=== PATIENT | male | born 1935 | race Caucasian/White ===

== ENCOUNTER 2024-12-04 19:48 | Emergency (ER) | payer MEDICARE, SELFPAY ==
[2024-12-04 19:50] VITALS: BP 105/70
[2024-12-04 20:35] VITALS: BMI 26.6
--- NOTE | 2024-12-04 22:13 | ED.GENMED ---
History of Present Illness
General
Chief Complaint: Fall
Source: patient and family
Exam Limitations: none
Time Seen by Provider: 12/04/24 20:11
Nursing documentation reviewed up to this point in time: agreed with
History of Present Illness
History of Present Illness:
Patient to ED from [facility]. According to son, patient had a trip and fall, witnessesd by staff. Hit right side of head on ground. No LOC Incident occurred jsut [employer]. Patient offers no complaints.
Past History
Past History
ED Past Medical History: Hypercholesterolemia and Hypothyroidism
Review of Systems
Review of Systems
Allergies reviewed?: Yes
All Other Systems: ROS reviewed and negative except as documented in HPI and ROS
Constitutional: Reports no symptoms
EENT: Reports no symptoms
Respiratory: Reports no symptoms
Cardiac: Reports no symptoms
ABD/GI: Reports no symptoms
Musculoskeletal: Reports no symptoms
Skin: Reports no symptoms
Neurological: Reports no symptoms
Psychiatric: Reports no symptoms
Phy Exam
General Physical Exam
General Presentation: well appearing and no apparent distress
General age: appears stated age
General Skin: warm and dry
General Habitus: normal
Cardiovascular Exam
Cardiovascular Exam: regular rate/rhythm
Pulmonary Exam
Pulmonary Exam: no respiratory distress and chest non tender
Gastrointestinal Exam
Gastrointestinal Exam: non tender, soft and no organomegaly
Neurological Exam
Neurological Exam: alert, no motor deficits, no sensory deficits and speech normal
Musculoskeletal Exam
Musculoskeletal Exam: full ROM and neuro vasc intact
Skin Exam
Skin Exam: normal color, warm/dry, no rash and other (No scalp wounds, no hematoma.)
Psychiatric Exam
Psychiatric Exam: normal mood/affect
Course
Orders/Labs/Results
Orders:
Orders
12/04/24 19:58
CT Head W/o Iv Contrast Urgent
Comment:
Reason For Exam: fall with head strike
Cervical Spine wo Contrast CT [CT Cervical Spine W/o Iv Contr] Urgent
Comment:
Reason For Exam: fall with head strike
Vital Signs
Initial and Last Documented VS:
Initial Vital Signs
Temp Pulse Resp BP Pulse Ox
98.1 F 71 16 105/70 98
12/04/24 19:50 12/04/24 19:50 12/04/24 19:50 12/04/24 19:50 12/04/24 19:50
Last Documented Vital Signs
Temp Pulse Resp BP Pulse Ox
98.1 F 71 16 105/70 98
12/04/24 19:50 12/04/24 19:50 12/04/24 19:50 12/04/24 19:50 12/04/24 19:50
*Radiology
Radiology exam reviewed: radiology read reviewed
*Pulse Oximetry
Patient hypoxic: no
*Critical Care Note
Total Time (30-74mins, 75-104mins- exclusive of procedures): Not Applicable
ED Attending Note
-
Portions of this chart may have been created with voice recognition software.� Occasional wrong word or��sound alike� substitutions may have occurred due to the inherent limitations of voice recognition software.
Discharge Plan
Departure
Patient Disposition: Home (Routine Discharge)
Date of Disposition: 12/04/24
Time of Disposition: 22:12
Patient with high blood pressure during this ER visit?: No
Condition: Good
Covid-19: Not Applicable
Discharge Problem:
Head injury
Instructions: Head Injury in Adults (DC), Preventing falls in adults
Prescriptions:
No Action
donepezil 5 mg Tablet
5 mg PO HS
melatonin 3 mg Tablet
3 mg PO HS
aspirin 81 mg Tablet,Delayed Release (Dr/Ec)
81 mg PO DAILY
triamcinolone acetonide 0.1 % Cream
1 applic TOPICAL DAILY PRN (Reason: psoriasis)
triamcinolone acetonide 0.1 % Cream
1 applic TOPICAL DAILY
levothyroxine 100 mcg Tablet
100 mcg PO DAILY
hydrocortisone 1 % Cream
1 applic TOPICAL Q4 PRN (Reason: itching)
rosuvastatin 40 mg Tablet
40 mg PO HS
memantine 10 mg Tablet
10 mg PO BID
Rx Instructions:
07:00 and 20:00
cholecalciferol (vitamin D3) [Vitamin D3] 25 mcg (1,000 unit) Tablet
25 mcg PO HS
Referrals:
UNKNOWN - PT DOES,NOT KNOW [Family Provider] -
Activity Restrictions/Additional Instructions:
Follow up with your healthcare provider this week.
Interventions
Interventions:
*Risk Screen - Suicide Last Done: 12/04/24 20:34
*General Assessment Last Done: 12/04/24 19:50
*Neglect/Abuse Screening Last Done: 12/04/24 20:34
ED- Fall Risk Assessment Last Done: 12/04/24 20:34
*ED COVID-19 Vaccine History Last Done: 12/04/24 19:50
ED-Musculoskeletal Assessment Last Done: 12/04/24 20:34
ED- Neurological Assessment Last Done: 12/04/24 20:34
ED-Skin Assessment Last Done: 12/04/24 20:34
Discharge Date and Time
Print Language: YAKUT
== END 2024-12-04 22:27 | disposition home or self-care (01) ==
LOC: EMR 19:48
PROVIDERS: EMERGENCY PHYSICIAN Emergency Medicine
DX: S09.90XA Unspecified injury of head, initial encounter (principal); W01.0XXA Fall on same level from slipping, tripping and stumbling without subsequent striking against object, initial encounter; E03.9 Hypothyroidism, unspecified; E78.00 Pure hypercholesterolemia, unspecified
CPT/HCPCS: 99284; 70450; 72125

== ENCOUNTER → 2025-03-31 15:44 | Outpatient (REF) | payer MEDICARE, SELFPAY ==
[2025-04-01 11:40] LABS: Hematocrit 36.1 % (39.0-52.0); Hemoglobin 12.4 g/dL (13.0-18.0); Mean Corp Hgb Conc. 34.3 g/dL (33.0-37.0); Mean Corpuscular Hgb 33.5 pg (27.0-31.0); Mean Corpuscular Volume 97.6 fL (80.0-94.0); Platelet Count 179 10^3/uL (130-400); Red Cell Dist. Width 12.7 % (11.5-14.5); White Blood Cell Count 5.4 10^3/uL (4.8-10.8)
[2025-04-01 11:41] LABS: % Eosinophils 8.2 % (0-6); % Lymphocytes 37.9 % (20.5-51.1); % Monocytes 19.6 % (1.7-9.3); Mean Platelet Volume 10.8 fL (7.4-10.4)
[2025-04-01 11:42] LABS: % Basophils 1.1 % (0-2); % Immature Granulocytes 0.2 % (0-0.5); Absolute Neutrophils 1.8 10^3/uL (1.4-6.5)
[2025-04-01 11:43] LABS: Absolute Basophils 0.1 10^3/uL (0-0.2); Absolute Monocytes 1.1 10^3/uL (0.1-0.6); Nucleated Red Blood Cells % 0 % (-)
[2025-04-01 11:44] LABS: Absolute Eosinophils 0.4 10^3/uL (0-0.7); Blood Urea Nitrogen 16 mg/dl (9-20); Glucose 94 mg/dl (70-99); eGFR > 60.00
[2025-04-01 11:46] LABS: Carbon Dioxide 29 mmol/L (22-30); Chloride 110 mmol/L (98-107); Potassium 4.1 mmol/L (3.5-5.1); Sodium 142 mmol/L (135-145)
[2025-04-01 11:47] LABS: ALT (SGPT) 29 U/L (0-50); AST (SGOT) 25 U/L (17-59); Albumin 3.5 g/dl (3.5-5.0); Alkaline Phosphatase 39 U/L (38-126); Calcium 8.9 mg/dl (8.4-10.2); Total Bilirubin 0.8 mg/dl (0.2-1.3); Total Protein 6.5 g/dl (6.3-8.2)
[2025-04-01 11:48] LABS: HDL Cholesterol 49 mg/dl; LDL Cholesterol, Calculated 38 mg/dl; Total Cholesterol 107 mg/dl (50-199); Triglyceride 101 mg/dl (10-149); Very Low Density Lipoprotein 20 mg/dl (0-30)
[2025-04-01 11:49] LABS: Free T4 1.26 ng/dl (0.78-2.19); TSH 2.94 uIU/ml (0.47-4.68)
[2025-04-01 11:50] LABS: PSA, Total - Screen 0.47 ng/ml (0.0-4.0)
== END ==
LOC: OLABMERCHI 15:44
PROVIDERS: ATTENDING PHYSICIAN Hospitalist
DX: E78.5 Hyperlipidemia, unspecified (principal); E03.9 Hypothyroidism, unspecified; E55.9 Vitamin D deficiency, unspecified; Z12.5 Encounter for screening for malignant neoplasm of prostate; R35.0 Frequency of micturition
CPT/HCPCS: 36415; 80053; 80061; 82306; 84439; 84443; 85025; G0103

== ENCOUNTER → 2025-04-07 12:37 | Outpatient (REF) | payer MEDICARE, SELFPAY ==
[2025-04-07 13:37] LABS: Hematocrit 40.4 % (39.0-52.0); Hemoglobin 13.7 g/dL (13.0-18.0); Mean Corp Hgb Conc. 33.9 g/dL (33.0-37.0); Mean Corpuscular Hgb 33.3 pg (27.0-31.0); Mean Corpuscular Volume 98.3 fL (80.0-94.0); Mean Platelet Volume 10.8 fL (7.4-10.4); Platelet Count 205 10^3/uL (130-400); Red Blood Cell Count 4.11 10^6/uL (4.70-6.10); Red Cell Dist. Width 12.8 % (11.5-14.5); White Blood Cell Count 5.6 10^3/uL (4.8-10.8)
[2025-04-07 14:42] LABS: ALT (SGPT) 28 U/L (0-50); AST (SGOT) 25 U/L (17-59); Albumin 4.1 g/dl (3.5-5.0); Alkaline Phosphatase 49 U/L (38-126); Blood Urea Nitrogen 18 mg/dl (9-20); Calcium 9.1 mg/dl (8.4-10.2); Carbon Dioxide 27 mmol/L (22-30); Chloride 108 mmol/L (98-107); Glucose 140 mg/dl (70-99); HDL Cholesterol 52 mg/dl; LDL Cholesterol, Calculated 41 mg/dl; Potassium 4.3 mmol/L (3.5-5.1); Sodium 143 mmol/L (135-145); Total Bilirubin 0.9 mg/dl (0.2-1.3); Total Cholesterol 112 mg/dl (50-199); Total Protein 7.3 g/dl (6.3-8.2); Triglyceride 98 mg/dl (10-149); Very Low Density Lipoprotein 19 mg/dl (0-30); eGFR > 60.00
[2025-04-07 15:10] LABS: Free T4 1.38 ng/dl (0.78-2.19); Vitamin D, 25-OH*** 48.6 ng/mL (30-80)
[2025-04-07 15:23] LABS: TSH 2.91 uIU/ml (0.47-4.68)
== END ==
LOC: OLABMERCHI 12:37
PROVIDERS: ATTENDING PHYSICIAN Hospitalist
DX: E78.5 Hyperlipidemia, unspecified (principal); E03.9 Hypothyroidism, unspecified; G30.9 Alzheimer's disease, unspecified; E55.9 Vitamin D deficiency, unspecified; R35.0 Frequency of micturition
CPT/HCPCS: 36415; 80053; 80061; 82306; 84439; 84443; 85027

== ENCOUNTER 2025-07-16 15:38 | Emergency (ER) | payer MEDICARE, SELFPAY ==
[2025-07-16 15:45] VITALS: BP 134/70
[2025-07-16 16:21] LABS: Hematocrit 36.5 % (39.0-52.0); Hemoglobin 12.4 g/dL (13.0-18.0); Mean Corp Hgb Conc. 34.0 g/dL (33.0-37.0); Mean Corpuscular Volume 97.1 fL (80.0-94.0); Nucleated Red Blood Cells % 0 % (-); Platelet Count 191 10^3/uL (130-400); Red Cell Dist. Width 12.7 % (11.5-14.5)
[2025-07-16 16:51] LABS: ALT (SGPT) 24 U/L (0-50); AST (SGOT) 23 U/L (17-59); Albumin 4.1 g/dl (3.5-5.0); Alkaline Phosphatase 64 U/L (38-126); Blood Urea Nitrogen 24 mg/dl (9-20); Calcium 9.1 mg/dl (8.4-10.2); Carbon Dioxide 27 mmol/L (22-30); Chloride 107 mmol/L (98-107); Glucose 109 mg/dl (70-99); Potassium 4.0 mmol/L (3.5-5.1); Sodium 139 mmol/L (135-145); Total Protein 7.4 g/dl (6.3-8.2); eGFR > 60.00
[2025-07-16 17:42] VITALS: BMI 26.4
[2025-07-16 17:45] VITALS: BP 134/68
--- NOTE | 2025-07-16 18:58 | ED.GENMED ---
History of Present Illness
General
Chief Complaint: Head Injury
Time Seen by Provider: 07/16/25 16:45
History of Present Illness
History of Present Illness:
89-year-old male presents to the emergency department for evaluation after an unwitnessed fall. He is a resident at assisted living facility, son states that they have cameras throughout his home particularly in his room and there was no video
evidence of the fall. Arrives with a large hematoma to the left parietal and occipital scalp. Patient cannot provide any history secondary to dementia. He denies complaints. Does not take blood thinners but does take baby aspirin
Past History
Past History
ED Past Medical History: Hypercholesterolemia and Hypothyroidism
Review of Systems
Review of Systems
Allergies reviewed?: Yes
All Other Systems: ROS reviewed and negative except as documented in HPI and ROS
Phy Exam
Physical Exam
Physical Exam:
GEN: Well appearing, NAD, WDWN
HEENT: Large cephalohematoma to the left occipital parietal scalp with no open wounds oral mucosa moist, no scleral icterus, no nasal congestion
Cardiac: Regular rate
Lung: No respiratory distress, no tachypnea
MSK: No gross deformity or injuries, no midline CTL spine tenderness
Skin: Good color, no pallor or jaundice, no rashes
Neuro: Alert and oriented to baseline, pleasantly confused; CN II-XII grossly intact. BUE strength 5/5 in all montero, sensation intact and symmetric. BLE strength 5/5 in all montero, sensation intact and symmetric
Psych: Calm, cooperative
Course
Orders/Labs/Results
Orders:
Orders
07/16/25 15:[address] [CT Head W/o Iv Contrast] Urgent
Comment:
Reason For Exam: fall
07/16/25 15:50
EKG [Electrocardiogram (*1)] Urgent
Reason for Study: Fatigue / Weakness
07/16/25 15:51
EKG- Treatment ONCE
07/16/25 16:07
CMP [Comprehensive Metabolic Panel] Urgent
Complete Blood Count/With Diff Urgent
Abnormal Lab Results
07/16/25
16:07
RBC 3.76 L 10^6/uL
(4.70-6.10)
Hgb 12.4 L g/dL
(13.0-18.0)
Hct 36.5 L %
(39.0-52.0)
MCV 97.1 H fL
(80.0-94.0)
MCH 33.0 H pg
(27.0-31.0)
Absolute Monos (auto) 0.9 H 10^3/uL
(0.1-0.6)
Monocytes % 15.1 H %
(1.7-9.3)
BUN 24 H mg/dl
(9-20)
Glucose 109 H mg/dl
(70-99)
07/16/25 16:07
07/16/25 16:07
Vital Signs
Initial and Last Documented VS:
Initial Vital Signs
Temp Pulse Resp BP Pulse Ox
97.5 F 66 18 134/70 96
07/16/25 15:45 07/16/25 15:45 07/16/25 15:45 07/16/25 15:45 07/16/25 15:45
Last Documented Vital Signs
Temp Pulse Resp BP Pulse Ox
97.5 F 62 16 154/84 96
07/16/25 15:45 07/16/25 19:42 07/16/25 19:42 07/16/25 19:42 07/16/25 19:42
MDM/Problems Addressed
MDM/Problems Addressed:
CT imaging reveals a small subarachnoid hemorrhage and a contrecoup location. Will be transferred to [facility] for observation and management, remained neurologically intact in the emergency department, discussed potential role of DDAVP with
trauma team at [facility] who felt this was unnecessary given the small size of the bleed
*Pulse Oximetry
SaO2: 98
Oxygen Mode of Delivery: Room air
Patient hypoxic: no
*Critical Care Note
Total Time (30-74mins, 75-104mins- exclusive of procedures): Not Applicable
ED Attending Note
-
Portions of this chart may have been created with voice recognition software.� Occasional wrong word or��sound alike� substitutions may have occurred due to the inherent limitations of voice recognition software.
Discharge Plan
Departure
Patient Disposition: [facility]
Date of Disposition: 07/16/25
Time of Disposition: 18:59
Discharge Problem:
Traumatic subarachnoid hemorrhage
Prescriptions:
No Action
donepezil 5 mg Tablet
5 mg PO HS
melatonin 3 mg Tablet
3 mg PO HS
aspirin 81 mg Tablet,Delayed Release (Dr/Ec)
81 mg PO DAILY
triamcinolone acetonide 0.1 % Cream
1 applic TOPICAL DAILY PRN (Reason: psoriasis)
triamcinolone acetonide 0.1 % Cream
1 applic TOPICAL DAILY
levothyroxine 100 mcg Tablet
100 mcg PO DAILY
hydrocortisone 1 % Cream
1 applic TOPICAL Q4 PRN (Reason: itching)
rosuvastatin 40 mg Tablet
40 mg PO HS
memantine 10 mg Tablet
10 mg PO BID
Rx Instructions:
07:00 and 20:00
cholecalciferol (vitamin D3) [Vitamin D3] 25 mcg (1,000 unit) Tablet
25 mcg PO HS
Referrals:
KEVIN STRAUSS CRNP [Family Provider, Family Practice]
Hospital Transfer
Other hospital: [facility]
I certify that the patient requires transfer: Yes
Discussed case with accepting physician: Rosa
Reason for transfer: higher level of care
Interventions
Interventions:
*Risk Screen - Suicide Last Done: 07/16/25 15:45
*General Assessment Last Done: 07/16/25 15:45
*Neglect/Abuse Screening Last Done: 07/16/25 15:45
*ED- Fall Risk Assessment Last Done: 07/16/25 15:45
*ED COVID-19 Vaccine History Last Done: 07/16/25 15:45
*Nursing Disposition Last Done: 07/16/25 19:49
ED- Neurological Assessment Last Done: 07/16/25 17:49
ED-Skin Assessment Last Done: 07/16/25 17:49
Discharge Date and Time
Discharge Date/Time: 07/16/25 19:52
Print Language: JORDANIAN
[2025-07-16 19:42] VITALS: BP 154/84
== END 2025-07-16 19:52 | disposition short-term general hospital (02) ==
LOC: EMR 15:38
PROVIDERS: Student in an Organized Health Care Education/Training Program; EMERGENCY PHYSICIAN Emergency Medicine
DX: S06.6XAA Traumatic subarachnoid hemorrhage with loss of consciousness status unknown, initial encounter (principal); W19.XXXA Unspecified fall, initial encounter; E78.00 Pure hypercholesterolemia, unspecified; E03.9 Hypothyroidism, unspecified; F03.90 Unspecified dementia, unspecified severity, without behavioral disturbance, psychotic disturbance, mood disturbance, and anxiety
CPT/HCPCS: 99285; 70450; 80053; 85025; 93005

== ENCOUNTER 2025-09-05 10:56 | Emergency (ER) | payer MEDICARE, SELFPAY ==
[2025-09-05 11:03] VITALS: BP 101/62
--- NOTE | 2025-09-05 12:39 | ED.GENMED ---
History of Present Illness
General
Chief Complaint: Head Injury
Source: patient and family
Time Seen by Provider: 09/05/25 12:07
History of Present Illness
History of Present Illness:
89-year-old male with past medical history of dementia, previous CVA, hypertension, hyperlipidemia, hypothyroidism presenting to the emergency department with his daughter for evaluation from [facility] after patient had an accidental fall earlier
today noting that he was just walking in the hallway when he accident and fell landing on his lower back, possibly with a head strike, daughter notes history of previous traumatic intracranial bleeding prompting them to want to come to the emergency
department. Secondary complaint of patient with urinary incontinence yesterday and today. No history of similar. Per the daughter patient seems to be quite lucid today, remembered his fall and has not had any other infectious symptoms.
Past History
Past History
ED Past Medical History: CVA, Hypercholesterolemia, Hypothyroidism and Other (Dementia)
ED Past Surgical History: Cholecystectomy
Social History
Tobacco: Non-smoker
Alcohol: None
Drug: None
Living: alone
Review of Systems
Review of Systems
All Other Systems: ROS reviewed and negative except as documented in HPI and ROS
Phy Exam
Physical Exam
Physical Exam:
GENERAL: Alert , in no apparent distress
HEAD: Normocephalic atraumatic
EYE: conjunctiva clear
NECK: Supple
ENT: o/p clr, mmm.
CARDIAC: Regular rate and rhythm
LUNGS: Clear breath sounds bilaterally, no acute respiratory distress, no wheezes/rales/rhonchi
NEUROLOGICAL: Alert and oriented to self and place but not time
SKIN: Warm and dry, skin intact.
MUSCULOSKELETAL: well perfused.
PSYCH: Normal and appropriate interaction.
Scores
Heart Failure Risk
Heart Failure Risk Score: Not Applicable
Heart Score for Chest Pain Patients
STEMI patient?: Not applicable
Withdrawal Assessment of Alcohol
Withdrawal Assessment Completed?: Not applicable
Course
Orders/Labs/Results
Orders:
Orders
09/05/25 11:06
CT Head W/o Iv Contrast Urgent
Comment: jun 2025 pt fell and had head bld
Reason For Exam: fell and hit back of head
09/05/25 12:35
Straight cath- Treatment ONCE
09/05/25 13:50
Urinalysis Reflex To Culture Urgent
Date Specimen was Collected: 09/05/25
Time Specimen was Collected: 12:15
Vital Signs
Initial and Last Documented VS:
Initial Vital Signs
Temp Pulse Resp BP Pulse Ox
98.0 F 65 16 101/62 98
09/05/25 11:03 09/05/25 11:03 09/05/25 11:03 09/05/25 11:03 09/05/25 11:03
Last Documented Vital Signs
Temp Pulse Resp BP Pulse Ox
98.0 F 65 16 101/62 98
09/05/25 11:03 09/05/25 11:03 09/05/25 11:03 09/05/25 11:03 09/05/25 12:44
MDM/Problems Addressed
Differential Diagnosis Includes:
Accidental fall
ICH
UTI
Progression of dementia
Medication side effects
MDM/Problems Addressed:
89-year-old male presenting to the ER for evaluation after an accidental fall, history of intracranial bleed from a fall earlier this year as well as his daughter reporting some urinary incontinence yesterday and today. Patient in no acute
distress. CT of the head was ordered from triage shows no acute intracranial pathology. I did add on a urinalysis to workup. Anticipate discharge home.
Chronic conditions affecting care: Neurological disorder
Acute Exacerbation and/or Progression of Chronic Illness: Neurological disorder
*Radiology
Radiology exam reviewed: radiology read reviewed
*Pulse Oximetry
SaO2: 98
Oxygen Mode of Delivery: Room air
Patient hypoxic: no
*Critical Care Note
Total Time (30-74mins, 75-104mins- exclusive of procedures): Not Applicable
Patient Management
Escalation/DeEscalation of care consider admission/obs:
Patient's urinalysis without any signs of infection. At this time I do think it is reasonable for patient to be discharged home and can continue workup as an outpatient as needed. Patient daughter aware of return precautions. She will be taking
the patient back to his assisted living.
ED Attending Note
-
Portions of this chart may have been created with voice recognition software.� Occasional wrong word or��sound alike� substitutions may have occurred due to the inherent limitations of voice recognition software.
Discharge Plan
Departure
Patient Disposition: Home (Routine Discharge)
Date of Disposition: 09/05/25
Time of Disposition: 14:42
Patient with high blood pressure during this ER visit?: No
Discharge Problem:
Accidental fall, Urinary incontinence
Instructions: Fall Prevention for Older Adults
Prescriptions:
No Action
donepezil 5 mg Tablet
5 mg PO HS
melatonin 3 mg Tablet
3 mg PO HS
aspirin 81 mg Tablet,Delayed Release (Dr/Ec)
81 mg PO DAILY
triamcinolone acetonide 0.1 % Cream
1 applic TOPICAL DAILY PRN (Reason: psoriasis)
triamcinolone acetonide 0.1 % Cream
1 applic TOPICAL DAILY
levothyroxine 100 mcg Tablet
100 mcg PO DAILY
hydrocortisone 1 % Cream
1 applic TOPICAL Q4 PRN (Reason: itching)
rosuvastatin 40 mg Tablet
40 mg PO HS
memantine 10 mg Tablet
10 mg PO BID
Rx Instructions:
07:00 and 20:00
cholecalciferol (vitamin D3) [Vitamin D3] 25 mcg (1,000 unit) Tablet
25 mcg PO HS
Referrals:
Tara Parra, [Family Provider, General]
Interventions
Interventions:
*General Assessment Last Done: 09/05/25 11:03
*Neglect/Abuse Screening Last Done: 09/05/25 11:03
ED- Neurological Assessment Last Done: 09/05/25 12:15
ED-Skin Assessment Last Done: 09/05/25 12:15
Discharge Date and Time
Print Language: MACEDONIAN
[2025-09-05 14:36] LABS: Urine Character Clear (Clear)
[2025-09-05 15:00] VITALS: BP 128/72
== END 2025-09-05 15:25 | disposition home or self-care (01) ==
LOC: EMR 10:56
PROVIDERS: Physician Assistant Medical; EMERGENCY PHYSICIAN Emergency Medicine; FAMILY PHYSICIAN Hospitalist
DX: R32 Unspecified urinary incontinence (principal); W19.XXXA Unspecified fall, initial encounter; S09.90XA Unspecified injury of head, initial encounter; F03.90 Unspecified dementia, unspecified severity, without behavioral disturbance, psychotic disturbance, mood disturbance, and anxiety; I10 Essential (primary) hypertension; E78.00 Pure hypercholesterolemia, unspecified; E03.9 Hypothyroidism, unspecified; Z86.73 Personal history of transient ischemic attack (TIA), and cerebral infarction without residual deficits; Z90.49 Acquired absence of other specified parts of digestive tract
CPT/HCPCS: 99284; 70450; 81003